=== PATIENT | male | born 1930 | race Caucasian/White ===

== ENCOUNTER 2016-11-26 12:47 | Day surgery (SDC) | payer MEDICARE ==
[2016-11-19 13:56] LABS: HEMOGLOBIN 12.1 g/dL (13.6-17.8)
[2016-11-19 14:08] LABS: BUN (BLOOD UREA NITROGEN) 10 MG/DL (6-23); CALCIUM, SERUM 8.1 MG/DL (8.5-10.4); CHLORIDE, SERUM 105 MMOL/L (96-112); CO2 (CARBON DIOXIDE) 26 MMOL/L (24-34); CREATININE 0.83 MG/DL (0.70-1.30); GFR AFRICAN AMERICAN 92 ML/MIN (>=60); GFR NON AFRICAN AMERICAN 79 ML/MIN (>=60); POTASSIUM, SERUM 3.7 MMOL/L (3.5-5.3); SODIUM, SERUM 142 MMOL/L (135-148)
[2016-11-19 14:09] LABS: GLUCOSE, SERUM 167 MG/DL (60-99)
--- NOTE | ~2016-11-26 | OP ---
Record Of Operation [facility] [address] [place]. [address] NAME: PRITESH SOTO : 28 STATUS : [facility]#: [id number] AGE: 86 ADM/REG DATE : 11/26/16 MR#: [id number] REPORT SERV DATE: 11/27/16 DICTATED BY: ELPIDIO GRIMES DATE: 11/26/16 REPORT STATUS : Draft TRANSCRIBED BY: MODL DATE: 11/26/16 DATE OF PROCEDURE: 11/26/2016 PREOPERATIVE DIAGNOSES: 1. Left ureteral and renal stones. 2. Recurrent urinary tract infection. POSTOPERATIVE DIAGNOSES: 1. Left ureteral and renal stones. 2. Recurrent urinary tract infection. PROCEDURE PERFORMED: 1. Left ureteroscopy with laser lithotripsy and basket stone fragment extraction. 2. Cystoscopy with left retrograde pyelogram and left ureteral stent exchange. SURGEON: Elpidio Grimes M.D. ANESTHESIA: General. SPECIMEN: Stone fragments from the left ureter and left kidney. INDICATION: Mr. Soto is an 86-year-old with left branched 1.5 cm stone that was symptomatic with recurrent UTIs. He has undergone two attempts of shock-wave lithotripsy with only minimal to moderate fragmentation. Two weeks ago, he presented with obstructing fragments at the UPJ and left distal ureter. Ureteral stent was placed. He has finished a course of Levaquin and presents for ureteroscopic treatment of the stone fragments. TECHNIQUE: Informed consent was obtained. He was brought to the operating general where anesthesia was administered. Genitals and perineum were prepped and draped in the lithotomy position in a sterile fashion. Levaquin was administered perioperatively. Rigid cystoscopy was performed. The urethra was normal. Prostate was previously resected with no obstruction. In the bladder, there was no stone, tumor, or lesion. Indwelling left ureteral stent was grasped and extracted out to the meatus. A wire was passed through the stent up to the left kidney. Rigid ureteroscope was advanced over the wire. In the left distal ureter, identified a six millimeter fragment that was oblong. A 365 micron holmium laser fiber was passed through the working channel and laser lithotripsy of the stone was performed. The stone was fragmented into three or four pieces. These were basket extracted and dropped in the bladder with an NGage basket. I replaced the wire up to the left kidney. A 46 cm 14-Indonesian ureteral access sheath was advanced to the left proximal ureter. Flexible ureteroscopy was performed. Large stone fragment was present in the renal pelvis/UPJ. Laser lithotripsy of the stone was performed. I next performed laser lithotripsy. The stone fragments were present in the lower pole. All stones were fragmented to pieces of two to three millimeters in size or smaller. I next Record Of Operation [address] [place]. [address] NAME: PRITESH SOTO : 28 STATUS : [facility]#: [id number] AGE: 86 ADM/REG DATE : 11/26/16 MR#: [id number] REPORT SERV DATE: 11/27/16 DICTATED BY: ELPIDIO GRIMES DATE: 11/26/16 REPORT STATUS : Draft TRANSCRIBED BY: DEONNA DATE: 11/26/16 used the NGage basket. The basket were extracted approximately 100 fragments from the left kidney. Fragments smaller than two millimeters in size or smaller were left to pass spontaneously. No fragments were visible on fluoroscopy at the end of the procedure. Renal pelvis retrograde filled with dilute contrast, there was mild hydronephrosis. No extravasation. I placed a variable length 6-Indonesian left ureter stent. The dangling string was removed. Coil was confirmed cystoscopically in the bladder and fluoroscopically in the renal pelvis. The bladder was drained and I evacuated the remaining fragments that had been left in the bladder at the beginning of the case. He will keep the stent for two weeks. I will see him back in the office for stent removal. He will need a KUB prior to stent removal. CHRISTIANO/DEONNA Elpidio Grimes M.D. / [id number] CC: Mallory Woodruff M.D.
[~2016-11-26 12:47] MED LIST: ACET500CAP PO; ADVIL PO; AMOXIL500 MG PO; ASA5GR PO; ASAB PO; AUG875 PO; AZO-STANDARD95 MG PO; CENTRUM PO; CENTRUM TAB1 TAB PO; CIP5 PO; CLARIT10 PO; DSS PO; FISH OIL1200 MG PO; FLOMAX4 PO; GLUCCHONDR PO; HALF81 PO; HUMULIN N1 ML SC; HUMULIN R1 ML SC; HYDROCHLOROT25 MG PO; IMDUR30 PO; ISOSORB DIN30 MG PO; ISOSORBIDE PO; K500 PO; L20 PO; LEVAQUIN750 MG PO; LEVEMIR SC; LEXAPRO10 PO; LORTAB 5 PO; MAGOX4 PO; MULTIVIT/MIN PO; NORCO1 TA1 PO; NORV5 PO; NOVOLOG SQ; OTC ACID REDUCER PO; OTC ALLERGY EYE DROP OP; PEP20 PO; PROSCAR5 PO; PYR100B PO; ROBITUSS21 PO/LIQ; T PO; TEARS PLUS OPH; VASOTEC10 PO; VASOTEC20 MG PO; VASOTEC5 PO; [UNRECOGNIZED DRUG - OTHER] PO; [UNRECOGNIZED DRUG - REMARK] OPH
== END 2016-11-26 22:13 | disposition home or self-care (01) ==
LOC: SDC 12:47
PROVIDERS: Urology
PROC: 0TF48ZZ Fragmentation in Left Kidney Pelvis, Via Natural or Artificial Opening Endoscopic (ICD-10-PCS; 2016-11-26)
PROC: 0T778DZ Dilation of Left Ureter with Intraluminal Device, Via Natural or Artificial Opening Endoscopic (ICD-10-PCS; 2016-11-26)
PROC: 0TC78ZZ Extirpation of Matter from Left Ureter, Via Natural or Artificial Opening Endoscopic (ICD-10-PCS; 2016-11-26)
PROC: 0TF78ZZ Fragmentation in Left Ureter, Via Natural or Artificial Opening Endoscopic (ICD-10-PCS; principal; 2016-11-26 14:15)
DX: N20.0 Calculus of kidney (principal); N39.0 Urinary tract infection, site not specified; Z86.73 Personal history of transient ischemic attack (TIA), and cerebral infarction without residual deficits; I10 Essential (primary) hypertension; E78.00 Pure hypercholesterolemia, unspecified; G47.33 Obstructive sleep apnea (adult) (pediatric); G30.9 Alzheimer's disease, unspecified; F02.80 Dementia in other diseases classified elsewhere, unspecified severity, without behavioral disturbance, psychotic disturbance, mood disturbance, and anxiety; G20 Parkinson's disease; E11.9 Type 2 diabetes mellitus without complications; K21.9 Gastro-esophageal reflux disease without esophagitis; I82.4Z2 Acute embolism and thrombosis of unspecified deep veins of left distal lower extremity; F32.9 Major depressive disorder, single episode, unspecified; H26.9 Unspecified cataract; H91.90 Unspecified hearing loss, unspecified ear; Z97.4 Presence of external hearing-aid; Z87.01 Personal history of pneumonia (recurrent); M19.90 Unspecified osteoarthritis, unspecified site; Z98.890 Other specified postprocedural states; Z90.89 Acquired absence of other organs; Z90.49 Acquired absence of other specified parts of digestive tract; Z87.442 Personal history of urinary calculi; Z90.79 Acquired absence of other genital organ(s); Z85.820 Personal history of malignant melanoma of skin; Z98.41 Cataract extraction status, right eye; Z98.42 Cataract extraction status, left eye; Z79.899 Other long term (current) drug therapy; Z79.891 Long term (current) use of opiate analgesic; Z79.4 Long term (current) use of insulin; Z79.82 Long term (current) use of aspirin
CPT/HCPCS: 74420; 80048; 82962; 85014; 85018; 88300; 93005; C1758; C1769; C1894; C2617; J2270; J2370; J2405; J2710; J3010; Q9967